=== PATIENT | female | born 1950 ===

== ENCOUNTER 2022-02-24 06:24 | Inpatient (IN) | payer OTHER ==
[~2022-02-24] VITALS: Ht 157.5 cm; Wt 76.2 kg
[~2022-02-24 06:24] MED LIST: CELEXA10 MG PO; COZAAR100 MG PO; NEURONTIN300 MG PO; NORVASC5 MG PO; RISPERDAL1 MG PO; TOPROL XL25 MG PO
[2022-02-25] MEDS ORDERED: BACTRIM DS TAB1 EACH PO (08:33)
[2022-02-25] MEDS ORDERED: INTEGRA PLUS C1 EACH PO (08:33)
[2022-02-25] MEDS ORDERED: ULTRAM50 MG PO (08:33)
[2022-02-25] MEDS ORDERED: ECOTRIN325 M1 PO (08:33)
== END 2022-02-25 11:40 | disposition home or self-care (01) | DRG 483 ==
LOC: CIR.AMB 06:24 → SURG 16:42 → CIR.AMB 16:45 → SURG 02-25 11:40
PROVIDERS: ADMIT Orthopaedic Surgery Sports Medicine; ATTEND Orthopaedic Surgery Sports Medicine
PROC: 0LS10ZZ Reposition Right Shoulder Tendon, Open Approach (ICD-10-PCS; 2022-02-24)
PROC: 0RRJ0JZ Replacement of Right Shoulder Joint with Synthetic Substitute, Open Approach (ICD-10-PCS; principal; 2022-02-24 16:45)
DX: M19.011 Primary osteoarthritis, right shoulder (principal); Z20.822 Contact with and (suspected) exposure to COVID-19